=== PATIENT | male | born 1990 | race Hispanic/Latino ===

== ENCOUNTER 2017-08-18 11:44 | Emergency (ER) | payer OTHER ==
[2017-08-18 11:48] VITALS: BP 142/86; PULSE 88; RESP 20; TEMP 98; O2SAT 100; BMI 20.2
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
[2017-08-18] MEDS ORDERED: Amoxicillin-Clav 875-125 mg Tab PO ONE (13:36)
[2017-08-18] MEDS: Amoxicillin-Clav 875-125 mg Tab PO STA (13:38)
== END 2017-08-18 13:42 | disposition home or self-care (01) ==
LOC: H.ER 11:44
DX: S09.90XA Unspecified injury of head, initial encounter (principal); Y92.89 Other specified places as the place of occurrence of the external cause; H66.90 Otitis media, unspecified, unspecified ear; H71.90 Unspecified cholesteatoma, unspecified ear